=== PATIENT | male | born 1940 | race Caucasian/White ===

== ENCOUNTER 2017-12-24 18:08 | Inpatient (IN) | END 2018-01-05 19:30 | DRG 870 ==

== ENCOUNTER 2018-02-01 14:21 | Day surgery (SDC) | END 2018-03-02 13:41 | disposition home or self-care (01) ==

== ENCOUNTER 2018-02-03 03:55 | Inpatient (IN) | END 2018-04-01 01:20 | disposition EXP | DRG 853 ==